=== PATIENT | female | born 1970 | race Asian ===

== ENCOUNTER 2019-01-03 19:52 | Emergency (ER) | payer MEDICAID ==
[~2019-01-03] VITALS: Ht 154.9 cm; Wt 56.2 kg
[2019-01-03 20:56] VITALS: Ht 154.9 cm; Wt 56.2 kg
[2019-01-03 23:45] LABS: BASOPHIL % 0.5 % (0-2); PLATELET COUNT 267 x10^3mcL (130-400)
[2019-01-03 23:53] LABS: CALCIUM 8.9 mg/dL (8.5-10.1); CARBON DIOXIDE 31.3 mmol/L (21-32); CHLORIDE SERUM 107 mmol/L (98-107); CREATININE SERUM 0.6 mg/dL (0.6-1.0); GFR1 > 60 mL/min; GLUCOSE SERUM 101 mg/dL (74-106); POTASSIUM SERUM 4.7 mmol/L (3.5-5.1); SODIUM SERUM 142 mmol/L (136-145)
[2019-01-03 23:56] LABS: ALBUMIN 3.9 g/dL (3.4-5.0); ALKALINE PHOSPHATASE 75 U/L (46-116); ALT/SGPT 24 U/L (14-59); AST/SGOT 17 U/L (15-37); BILIRUBIN TOTAL 0.5 mg/dL (0.20-1.00); CHOLESTEROL 183 mg/dL (<200); CHOLESTEROL/HDL RATIO 3.8; HDL CHOLESTEROL 48 mg/dL (40-60); LIPASE 78 IU/L (73-393); TOTAL PROTEIN, SERUM 7.5 g/dL (6.4-8.2); TRIGLYCERIDES 76 mg/dL (<150)
[2019-01-03 23:59] LABS: RED CELL DISTRIBUTION WIDTH 17.6 % (11.5-14.5)
[2019-01-04 00:04] LABS: T3 TOTAL 1.14 ng/mL
[2019-01-04 00:09] LABS: FREE T4 0.93 ng/dL (0.76-1.46); FREE THYROXINE INDEX 2.4 ug/dL (1.4-4.5); T4(THYROXINE) 6.9 ug/dL (4.7-13.3)
[2019-01-04 00:20] LABS: microscopic required? YES; urine erythrocyte TRACE (NEGATIVE)
[2019-01-04 01:28] VITALS: BP 115/58
== END 2019-01-04 01:28 | disposition home or self-care (01) ==
LOC: ED 19:52
PROVIDERS: Specialist
DX: R42 Dizziness and giddiness (principal); R11.10 Vomiting, unspecified; R51 Headache
CPT/HCPCS: 36415; 84439; Q0092